=== PATIENT | female | born 1955 | race Caucasian/White ===

== ENCOUNTER 2017-06-14 16:41 | Emergency (ER) | payer BC ==
[~2017-06-14] VITALS: Ht 160 cm; Wt 94.4 kg
[~2017-06-14 16:41] MED LIST: BACT800T5 PO; HYDR-3533 PO; LEVO.025 PO
[2017-06-14 16:48] VITALS: BP 128/68; PULSE 92; RESP 16; TEMP 98.4; O2SAT 96
[2017-06-14] MEDS ORDERED: LEVO25TA4 PO (16:56)
[2017-06-14] MEDS ORDERED: GELATIN 12 MM/7 MM FOAM TOPICAL ONE (17:00)
[2017-06-14] MEDS ORDERED: CLINDAMYCIN INJ 300 MG in SODIUM CHLORIDE 0.9% INJ 100 ML IV ONE (17:30)
[2017-06-14] MEDS ORDERED: BACT800T5 PO (17:39)
[2017-06-14] MEDS ORDERED: TRAM50 PO (17:39)
--- NOTE | 2017-06-14 17:39 | PD ---
HPI Chief Complaint: Skin Problem Time Seen by Provider: 16:54 Travel History International Travel<30 days: No Contact w/Intl Traveler<30days: No Traveled to known affect area: No History of Present Illness HPI has noted open sores for 5 days which she thought were getting better but now one is starting to get red and swollen on her right breast area, pain 5/10, nonradiating and only over open sore area. 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 Reported Meds & Prescriptions Reported Meds & Active Scripts Active Ultram (Tramadol HCl) 50 Mg Tab 50 Mg PO Q6H PRN Bactrim DS (Sulfamethoxazole-Trimethoprim) 800-160 Mg Tab 1 Tab PO BID Reported Levothyroxine (Levothyroxine Sodium) 25 Mcg Tab 37 Mcg PO DAILY Review of Systems Except as stated in HPI: all other systems reviewed are Neg General / Constitutional: No: Fever Eyes: No: Visual changes HENT: No: Headaches Cardiovascular: No: Chest Pain or Discomfort Respiratory: No: Shortness of Breath Gastrointestinal: No: Abdominal Pain Genitourinary: No: Dysuria Musculoskeletal: No: Pain Skin: Positive Rash, Positive Lesions Neurologic: No: Weakness Psychiatric: No: Depression Endocrine: No: Polydipsia Hematologic/Lymphatic: No: Easy Bruising Physical Exam Narrative GENERAL: SKIN: Warm and dry...patient has two 1cm lesions which are healing at 3 oclock area, on other side of areola at 10 oclock position is an ulcerated lesion of 1.5cm diameter with a 6cm sorrounding erythematous base/nonfluctuant HEAD: Atraumatic. Normocephalic. EYES: Pupils equal and round. No scleral icterus. No injection or drainage. ENT: No nasal bleeding or discharge. Mucous membranes pink and moist. NECK: Trachea midline. No JVD. CARDIOVASCULAR: Regular rate and rhythm. RESPIRATORY: No accessory muscle use. Clear to auscultation. Breath sounds equal bilaterally. GASTROINTESTINAL: Abdomen soft, non-tender, nondistended. MUSCULOSKELETAL: Extremities without clubbing, cyanosis, or edema. No obvious deformities. NEUROLOGICAL: Awake and alert. No obvious cranial nerve deficits. Motor grossly within normal limits. Five out of 5 muscle strength in the arms and legs. Normal speech. PSYCHIATRIC: Appropriate mood and affect; insight and judgment normal. Data Data Last Documented VS Vital Signs Date Time Temp Pulse Resp B/P (MAP) Pulse Ox O2 Delivery O2 Flow Rate FiO2 06/14/17 16:48 98.4 92 16 128/68 (88) 96 Orders Orders Gelatin 12 Mm/7 Mm Top (Gelfoam 12 Mm/7 (06/14/17 17:00) Clindamycin Inj (Cleocin Inj) (06/14/17 18:00) Tetanus/Diphtheria Tox Adult (Tetanus/Di (06/14/17 18:30) Ed Discharge Order (06/14/17 18:20) MDM Medical Decision Making Medical Screen Exam Complete: Yes Emergency Medical Condition: Yes Medical Record Reviewed: Yes Differential Diagnosis cellulitis v lymphangitis v mrsa Narrative Course after examination this is an early cellulitic finding will provide clindamycin im along with po abx and follow up with your pcp Diagnosis Primary Impression: cellulitis Patient Instructions: General Instructions, MRSA (Methicillin-Resistant Staphylococcus Aureus) (ED) Scripts Tramadol (Ultram) 50 Mg Tab 50 MG PO Q6H Y for PAIN, #12 TAB 0 Refills Prov: Justin Leiva MD 06/14/17 Sulfamethoxazole-Trimethoprim (Bactrim DS) 800-160 Mg Tab 1 TAB PO BID for Infection, #20 TAB 0 Refills Prov: Justin Leiva MD 06/14/17 Disposition: 01 DISCHARGE HOME Condition: Stable Justin Leiva MD Jun 14, 2017 17:39
[2017-06-14] MEDS ORDERED: CLINDAMYCIN PHOS 300 MG/2 ML VIAL IM ONE (17:45)
[2017-06-14] MEDS ORDERED: CLINDAMYCIN PHOS 600 MG/4 ML VIAL IM ONE (18:00)
[2017-06-14] MEDS ORDERED: TETANUS/DIPHTHERIA TOXOID ADULT 0.5 ML VIAL IM ONE (18:30)
== END 2017-06-14 18:41 | disposition home or self-care (01) ==
LOC: PHEFT 16:41
DX: L03.90 Cellulitis, unspecified (principal); Z23 Encounter for immunization
CPT/HCPCS: 90471; 90714; 96372